=== PATIENT | female | born 1960 ===

== ENCOUNTER 2020-04-13 12:34 | Emergency (ER) | payer BC ==
[2020-04-13] MEDS ORDERED: SODIUM CHLORIDE 0.9% 500 ML 500 ML IV ONE (13:07)
[2020-04-13] MEDS ORDERED: ONDANSETRON 4 MG/2 ML INJ IV ONE (13:07)
[2020-04-13] MEDS ORDERED: ACETAMINOPHEN 325 MG TAB PO ONE (13:08)
--- NOTE | 2020-04-13 13:10 | Emergency Department Report ---
ED General Adult HPI - General Stated complaint: ROWAN Time Seen by Provider: 04/13/20 12:56 - History of Present Illness Initial comments: Patient is a 59-year-old female diagnosed with COVID-19 2 weeks ago who presents to the emergency department for persistent shortness of breath, nausea, and malaise which has been particularly bad the past 3 days. Patient completed a course of oral steroids and oral azithromycin 2 days ago, continues to be symptomatic with minimally productive cough and intermittent dyspnea. Patient states when checking her oxygen at home this morning it was initially 80, following coughing and deep breathing registered over 90%. Patient denies chest pain, denies headache, denies calf pain or pleuritic chest pain. Patient c urrently supplementing at home with Vitamin C/D and zinc. - Related Data Previous Rx's Medication Instructions Recorded Last Taken Type Ondansetron HCl [Zofran] 4 mg PO Q8HR #10 tablet 04/13/20 Unknown Rx Allergies Allergy/AdvReac Type Severity Reaction Status Date / Time No Known Allergies Allergy Unverified 04/13/20 14:07 ED Review of Systems ROS: Stated complaint: ROWAN Other details as noted in HPI Comment: All other systems reviewed and negative ED Past Medical Hx - Past Medical History Previous Medical History?: No - Medications Home Medications: Home Medications Medication Instructions Recorded Confirmed Last Taken Type Ondansetron HCl [Zofran] 4 mg PO Q8HR #10 tablet 04/13/20 Unknown Rx ED Physical Exam - General Limitations: No Limitations General appearance: alert, in no apparent distress - Head Head exam: Present: atraumatic, normocephalic - Eye Eye exam: Present: normal appearance - ENT ENT exam: Present: mucous membranes moist - Neck Neck exam: Present: normal inspection - Respiratory Respiratory exam: Present: normal lung sounds bilaterally. Absent: respiratory distress - Cardiovascular Cardiovascular Exam: Present: regular rate, normal rhythm. Absent: systolic murmur, diastolic murmur, rubs, gallop - GI/Abdominal GI/Abdominal exam: Present: soft, normal bowel sounds - Extremities Exam Extremities exam: Present: normal inspection - Back Exam Back exam: Present: normal inspection - Neurological Exam Neurological exam: Present: alert, oriented X3 - Psychiatric Psychiatric exam: Present: normal affect, normal mood - Skin Skin exam: Present: warm, dry, intact, normal color. Absent: rash ED Course Vital Signs 04/13/20 04/13/20 04/13/20 13:45 14:00 14:53 Temperature 101 F H Pulse Rate 111 H Respiratory 16 16 16 Rate Blood Pressure 142/84 Blood Pressure [Left] O2 Sat by Pulse 94 94 Oximetry 04/13/20 04/13/20 04/13/20 15:41 16:18 17:30 Temperature 98.5 F Pulse Rate 93 H 92 H Respiratory 17 18 Rate Blood Pressure Blood Pressure 115/62 133/78 [Left] O2 Sat by Pulse 92 94 Oximetry - Reevaluation(s) Reevaluation #1: 04/14/20 11:43 Patient treated with IV NS 1 L x 1, Zofran 4 mg IV. x1, and Tylenol p.o. On reevaluation, patient in no acute distress, discussed at length treatment options which are limited given patient's reassuring respiratory status. P atient ambulated through ED room with low oxygen saturation noted to be 94% by nursing staff. Given absence of need of supplemental oxygen, patient consequently does not need inpatient therapy nor remdesivir. Patient advised to continue conservative measures and supplementation at home. Is advised to take additional absence from work as they had allegedly been attempting to have her return given her onset of symptoms was greater than 10 days ago. Reevaluation #2: 04/14/20 15:32 Following IV normal saline, patient no longer tachycardic, has blood glucose under 300. ED Medical Decision Making - Lab Data Result diagrams: 04/13/20 13:26 04/13/20 13:26 Labs 04/13/20 04/13/20 04/13/20 13:26 13:26 13:26 WBC 8.2 RBC 4.77 Hgb 13.8 Hct 40.7 MCV 85 MCH 29 MCHC 34 RDW 14.4 Plt Count 183 Lymph % (Auto) 9.9 L [place] % (Auto) 8.1 H Eos % (Auto) 0.0 Baso % (Auto) 0.1 Lymph # (Auto) 0.8 L [place] # (Auto) 0.7 Eos # (Auto) 0.0 Baso # (Auto) 0.0 Seg Neutrophils % 81.9 H Seg Neutrophils # 6.7 Sodium 135 L Potassium 4.8 Chloride 99.2 Carbon Dioxide 26 Anion Gap 15 BUN 17 Creatinine 0.7 Estimated GFR > 60 BUN/Creatinine Ratio 24 Glucose 310 H POC Glucose Calcium 8.4 Troponin T < 0.010 Acetaminophen 5.0 L 04/13/20 15:59 WBC RBC Hgb Hct MCV MCH MCHC RDW Plt Count Lymph % (Auto) [place] % (Auto) Eos % (Auto) Baso % (Auto) Lymph # (Auto) [place] # (Auto) Eos # (Auto) Baso # (Auto) Seg Neutrophils % Seg Neutrophils # Sodium Potassium Chloride Carbon Dioxide Anion Gap BUN Creatinine Estimated GFR BUN/Creatinine Ratio Glucose POC Glucose 253 H Calcium Troponin T Acetaminophen Vital Signs 04/13/20 04/13/20 04/13/20 13:45 14:00 14:53 Temperature 101 F H Pulse Rate 111 H Respiratory 16 16 16 Rate Blood Pressure 142/84 Blood Pressure [Left] O2 Sat by Pulse 94 94 Oximetry 04/13/20 04/13/20 04/13/20 15:41 16:18 17:30 Temperature 98.5 F Pulse Rate 93 H 92 H Respiratory 17 18 Rate Blood Pressure Blood Pressure 115/62 133/78 [Left] O2 Sat by Pulse 92 94 Oximetry Critical care attestation.: If time is entered above; I have spent that time in minutes in the direct care of this critically ill patient, excluding procedure time. ED Disposition Clinical Impression: COVID-19 Disposition: DC-01 TO HOME OR SELFCARE Is pt being admited?: No Condition: Stable Instructions: COVID-19 Additional Instructions: Follow-up with primary care doctor in 1 to 2 days for reevaluation. Return to the emergency department for worsening symptoms. Prescriptions: Ondansetron HCl [Zofran] 4 mg PO Q8HR #10 tablet Referrals: PRIMARY CARE, [Primary Care Provider] - 3-5 Days
[2020-04-13 13:44] LABS: Basophils % (Auto) 0.1 % (0.0-1.8); Hematocrit 40.7 % (30.3-42.9); Hemoglobin 13.8 gm/dl (10.1-14.3); Lymphocytes # (Auto) 0.8 K/mm3 (1.2-5.4); Lymphocytes % (Auto) 9.9 % (13.4-35.0); Mean Corpuscular HGB Conc 34 % (30-34); Mean Corpuscular Volume 85 fl (79-97); Monocytes # (Auto) 0.7 K/mm3 (0.0-0.8); Monocytes % (Auto) 8.1 % (0.0-7.3); Platelet Count 183 K/mm3 (140-440); Red Blood Count 4.77 M/mm3 (3.65-5.03); Red Cell Distribution Width 14.4 % (13.2-15.2)
[2020-04-13 14:06] LABS: Blood Urea Nitrogen 17 mg/dL (7-17); Calcium 8.4 mg/dL (8.4-10.2); Hemolysis Index 8
[2020-04-13 14:19] LABS: BUN/Creatinine Ratio 24
--- NOTE | 2020-04-13 15:14 | XRay Report ---
CHEST 1 VIEW INDICATION: fever COMPARISON: None FINDINGS: Support devices: None Heart: Normal Lungs/Pleura: Mild, chronic appearing interstitial disease. No definite acute disease. IMPRESSION: 1. No acute disease. Signer Name: Baudilio Vargas MD Signed: 04/13/2020 3:10 PM Workstation Name: [id number]
[2020-04-13 18:00] VITALS: BP 133/78
== END 2020-04-13 18:01 | disposition home or self-care (01) ==
LOC: ED 12:34
DX: U07.1 COVID-19 (principal); Z79.899 Other long term (current) drug therapy
CPT/HCPCS: 36415; 71045; 80048; 82962; 84484; 85025; 96361; 96374; 99284; J2405; J7040; 80320; G0480